=== PATIENT | female | born 1960 | race Caucasian/White ===

== ENCOUNTER 2017-12-03 22:02 | Emergency (ER) | payer MEDICARE ==
[2017-12-03] MEDS ORDERED: CELEXA 20MG20 MG/TA1 PO (22:25)
[2017-12-03 22:57] LABS: EOS # 0.1 (0.04-0.40); EOS % 0.6 % (1.0-5.0); HEMATOCRIT 40.7 % (37.0-47.0); LYMPH# 2.8 (1.50-4.00); MEAN CELL VOLUME 90 fl (78-100); MEAN CORPUSCULAR HEMOGLOBIN 31 pg (27-31); MEAN CORPUSCULAR HGB CONC 34 g/dL (33-37); MEAN PLATELET VOLUME 9.6 fl (7.4-10.4); MONO # 1.3 (0.20-0.80); NEU # 6.5 (1.40-6.50); PLATELET COUNT 292 K/mm3 (130-400); RED BLOOD COUNT 4.54 M/mm3 (4.10-5.30); RED CELL DISTRIBUTION WIDTH 12.4 % (11.5-14.5); WHITE BLOOD COUNT 10.6 K/mm3 (4.8-10.8)
[2017-12-03 23:42] LABS: ALBUMIN 3.8 g/dL (3.5-5.0); ALCOHOL IN-HOUSE 215 mg/dL; ALT/SGPT 31 U/L (9-52); AST-SGOT 20 U/L (14-36); BUN/CREATININE RATIO 9.2 (6.0-26.0); CALCIUM 8.6 mg/dL (8.4-10.2); CARBON DIOXIDE 24 mmol/L (22-30); POTASSIUM 3.7 mmol/L (3.6-5.0); TOTAL PROTEIN 6.7 g/dL (6.3-8.2)
[2017-12-03 23:44] LABS: TOTAL BILIRUBIN < 0.1 mg/dL (0.2-1.3)
[2017-12-03 23:45] LABS: ACETAMINOPHEN < 4 ug/mL (10-30)
[2017-12-03 23:54] LABS: GLUCOSE 91 mg/dL (65-105); SODIUM 136 mmol/L (137-145)
[2017-12-04 06:57] LABS: URINE APPEARANCE CLEAR; URINE BILIRUBIN NEGATIVE (NEGATIVE); URINE BLOOD TRACE (NEGATIVE); URINE COLOR YELLOW; URINE GLUCOSE NEGATIVE (NEGATIVE); URINE KETONE NEGATIVE (NEGATIVE); URINE LEUKOCYTE ESTERASE 1+ (NEGATIVE); URINE NITRATE NEGATIVE (NEGATIVE); URINE PROTEIN(semi-quant) NEGATIVE (NEGATIVE); URINE UROBILINOGEN NORMAL (NORMAL)
[2017-12-04 07:12] VITALS: BP 113/68
== END 2017-12-04 07:12 | disposition home or self-care (01) ==
LOC: ED 22:02
PROVIDERS: Family Medicine
DX: F10.129 Alcohol abuse with intoxication, unspecified (principal); Y90.7 Blood alcohol level of 200-239 mg/100 ml; R41.82 Altered mental status, unspecified; S01.81XA Laceration without foreign body of other part of head, initial encounter; W19.XXXA Unspecified fall, initial encounter; F91.9 Conduct disorder, unspecified
CPT/HCPCS: J3411; J3490; J7030

== ENCOUNTER 2018-01-01 19:54 | Emergency (ER) | payer MEDICARE ==
[~2018-01-01 19:54] MED LIST: CELEXA 20MG20 MG/TA1 PO
[2018-01-01 20:28] LABS: EOS # 0.1 (0.04-0.40); EOS % 0.9 % (1.0-5.0); HEMOGLOBIN 13.9 g/dL (12.5-16.0); LYMPH# 2.8 (1.50-4.00); MEAN CELL VOLUME 91 fl (78-100); MEAN CORPUSCULAR HEMOGLOBIN 31 pg (27-31); MEAN CORPUSCULAR HGB CONC 34 g/dL (33-37); MEAN PLATELET VOLUME 9.3 fl (7.4-10.4); MONO # 1.1 (0.20-0.80); NEU # 5.9 (1.40-6.50); PLATELET COUNT 308 K/mm3 (130-400); RED BLOOD COUNT 4.53 M/mm3 (4.10-5.30); RED CELL DISTRIBUTION WIDTH 12.6 % (11.5-14.5); WHITE BLOOD COUNT 9.9 K/mm3 (4.8-10.8)
[2018-01-01 20:37] LABS: CALCIUM 8.8 mg/dL (8.4-10.2); POTASSIUM 3.4 mmol/L (3.6-5.0)
[2018-01-02 05:00] VITALS: BP 113/69
== END 2018-01-02 05:00 | disposition home or self-care (01) ==
LOC: ED 19:54
PROVIDERS: Family Medicine
DX: F10.120 Alcohol abuse with intoxication, uncomplicated (principal); Y90.7 Blood alcohol level of 200-239 mg/100 ml; Z86.12 Personal history of poliomyelitis

== ENCOUNTER → 2024-01-18 | Outpatient (CLI) | payer MEDICARE, MEDICAID ==
[~2024-01-18] MED LIST changes: +Gadoterate 20 ML VIAL IV ONE
== END ==
LOC: RAD 11:15
DX: R56.9 Unspecified convulsions (principal); R25.9 Unspecified abnormal involuntary movements
CPT/HCPCS: A9575

== ENCOUNTER → 2024-02-02 | Outpatient (CLI) | payer MEDICARE, MEDICAID ==
[~2024-02-02] MED LIST changes: -Gadoterate 20 ML VIAL IV ONE
== END ==
LOC: MAMMO 09:00
DX: Z12.31 Encounter for screening mammogram for malignant neoplasm of breast (principal)